=== PATIENT | male | born 1990 | race American Indian/Alaskan Native ===

== ENCOUNTER 2019-01-10 10:11 | Emergency (ER) | payer SELFPAY ==
[2019-01-10 10:35] VITALS: BP 115/69
--- NOTE | 2019-01-10 12:11 | Emergency Department Report ---
Chief Complaint: Urogenital-Male Stated Complaint: STD CHECK Time Seen by Provider: 01/10/19 12:02 - HPI History of Present Illness: 28-year-old male presents to the emergency department wanting to just get a general checkup regarding STDs and HIV. He is sexually active and admits to not always using protection. However he denies any burning with urination, penile discharge, rash or lesions, abdominal or back pain, or any physical complaints at this time. - ROS Review of Systems: Patient denies any penile discharge, dysuria, penile lesions or rash, abdominal or back pain or any physical complaints. - Exam Vital Signs: Vital Signs 01/10/19 10:33 Temperature 98.2 F Pulse Rate 72 Respiratory 18 Rate Blood Pressure 115/69 O2 Sat by Pulse 98 Oximetry Physical Exam: Awake, alert, resting comfortably in no acute distress. Patient seen ambulatory. MSE screening note: Focused history and physical exam performed. Due to findings the following was ordered: The patient has no physical complaints regarding an STD check or HIV check. This includes no abdominal pain, penile discharge, dysuria, back pain, rash or lesions. The patient was given the opportunity to pay the co-pay for further evaluation and possible empiric treatment. However he does not want to. Co-pay and will instead be referred to the health Department. ED Disposition for MSE Condition: Stable
== END 2019-01-10 12:42 | disposition home or self-care (01) ==
LOC: ED 10:11
DX: Z53.21 Procedure and treatment not carried out due to patient leaving prior to being seen by health care provider (principal)
CPT/HCPCS: 99281